=== PATIENT | female | born 1935 | race Caucasian/White ===

== ENCOUNTER 2018-04-10 07:29 | Outpatient (CLI) | payer MEDICARE, BC ==
--- NOTE | 2018-04-10 12:45 | NM ---
HEPATOBILIARY NUCLEAR MEDICINE SCAN: HISTORY: An 82-year-old female with right upper quadrant pain. TECHNIQUE/FINDINGS: The patient was injected with 5 millicuries of technetium 99m mebrofenin intravenously. There was pr ompt uptake of the tracer by the liver with excretion into the biliary tree and gallbladder. At the one hour time interval, the patient was given 8 oz of Ensure p.o. Gallbladder ejection fraction, aft er 1 hour, equals 79%. IMPRESSION: Normal nuclear medicine hepatobiliary scan and ejection fraction with a 79% gallbladder ejection frac tion at one hour. POS: OFF
== END 2018-04-10 07:30 | disposition home or self-care (01) ==
LOC: NM 07:29
PROVIDERS: ATTEND Internal Medicine Gastroenterology
DX: K50.90 Crohn's disease, unspecified, without complications (principal); R10.11 Right upper quadrant pain
CPT/HCPCS: 78227; A9537

== ENCOUNTER 2018-10-15 14:53 | Observation (INO) | payer MEDICARE, BC ==
[2018-10-15 15:38] LABS: #Basophils 0.1 thou/uL (0.0-0.2); #Eosinphils 0.2 thou/uL (0.0-0.7); #Lymphocytes 2.1 thou/uL (1.20-3.40); #Monocytes 0.9 thou/uL (0.11-0.59); #Neutrophils 9.7 thou/uL (1.40-6.50); %Basophils 0.5 % (0.0-1.0); %Eosinophils 1.7 % (0.0-10.0); %Lymphocytes 16.4 % (21.0-51.0); %Monocytes 7.1 % (0.0-10.0); %Neutrophils 74.3 % (42.0-75.0); Hemoglobin 14.1 g/dL (12.0-16.0); Mean Corpuscular HGB CONC 33.7 g/dL (32.0-36.0); Mean Corpuscular Hemoglobin 30.7 pg (27.0-31.0); Mean Corpuscular Volume 91.2 fL (78.0-98.0); Mean Platelet Volume 7.4 fL (7.4-10.4); Platelet Count 278 thou/uL (130-400); RBC Distribution Width 12.6 % (11.5-14.5); Red Blood Cell (RBC) Count 4.59 mill/uL (4.20-5.40)
[2018-10-15 16:12] LABS: ALT (SGPT) 13 U/L (8-55); AST (SGOT) 17 U/L (5-34); Albumin 3.4 g/dL (3.4-4.8); Alkaline Phosphatase 96 U/L (40-150); Anion Gap 17 mmol/L (10-20); BUN (Urea Nitrogen) 31 mg/dL (9.8-20.1); Bilirubin, Total 0.4 mg/dL (0.2-1.2); Calc. Creatinine Clearance 0 mL/min (70-130); Calcium 9.7 mg/dL (7.8-10.44); Carbon Dioxide 18 mmol/L (23-31); Chloride 105 mmol/L (98-107); Estimated GFR-MDRD 36; Globulin 3.5 g/dL (2.4-3.5); Glucose 222 mg/dL (83-110); Potassium 5.3 mmol/L (3.5-5.1); Protein, Total 6.9 g/dL (6.0-8.3); Sodium 135 mmol/L (136-145)
[2018-10-15 18:12] LABS: Bilirubin Negative (Negative); Blood, Urine Negative (Negative); Clarity CLEAR (Clear); Glucose, Urine (Dipstick) Negative (Negative); Leukocyte Negative (Negative); Nitrite Negative (Negative); Protein, Urine (Dipstick) Negative (Neg-Trace); Urobilinogen 0.2 mg/dL (0.2-1.0)
[2018-10-16] MEDS ORDERED: Acetaminophen 325 MG TAB PO PRN (00:05)
[2018-10-16] MEDS ORDERED: Acetaminophen 650 MG Suppository PR PRN (00:05)
[2018-10-16] MEDS ORDERED: Ondansetron PF 4 MG/2 ML Vial IVP PRN (00:05)
[2018-10-16] MEDS ORDERED: Ondansetron ODT 4 MG TAB PO PRN (00:05)
[2018-10-16] MEDS ORDERED: Melatonin 3 MG TAB PO PRN (00:09)
[2018-10-16] MEDS ORDERED: Sodium Chloride 0.9% 1,000 ML IV SCH (00:15)
[2018-10-16 01:40] VITALS: BMI 30.7
--- NOTE | 2018-10-16 04:29 | HP ---
REASON FOR ADMISSION: Weakness with recent diarrhea. HISTORY OF PRESENT ILLNESS AND REVIEW OF SYSTEMS: Ms. Small is a pleasant 83-year-old woman with a background history of Crohn's, type 2 diabetes, myasthenia gravis, and hypothyroidism who presents with complaints of progressive weakness for the last 3-5 days. She was also experiencing diarrhea, which actually resolved yesterday. She reports having improved stools without any complaints of melena or hematochezia. The patient reports undergoing recent antibiotic therapy for a persistent UTI and received 30 days of tetracycline. She states she has been dealing with a persistent UTI for the last 18 months requiring 8-9 courses of antibiotics. She completed this more recent course of antibiotics on Friday, October 12, 2018. Per her daughter, she has been eating less due to sleeping more during the day. Patient is awake most of the night. She has noted weakness in the lower extremities. Normally, she walks around her home unassisted and uses a walker for long distances. She denies having any numbness or paresthesias in her legs. She states she overall feels fatigued and it has continued to worsen for the last few days. She denies having any nausea or vomiting. Denies having any fevers, chills, or sweats. Denies having any headaches or dizziness. She does report feeling lightheaded upon standing; therefore, she usually takes her time with change in positions. Denies having any changes with her appetite, but has been skipping meals due to sleeping during the day. She denies having any changes with her weight. No chest pain, palpitations, or shortness of breath. No abdominal pain or cramping. No urinary symptoms such as dysuria or hematuria. All other review of systems are negative. PAST MEDICAL HISTORY: 1. Diabetes type 2. 2. Hypothyroidism. 3. Crohn's disease. 4. Previous history of left breast cancer status post mastectomy in 1972. 5. Myasthenia gravis. 6. Anxiety. 7. Depression. PAST SURGICAL HISTORY: 1. Tonsillectomy. 2. Back surgeries x2 with titanium in neck. 3. Umbilical hernia repair. 4. Hysterectomy. 5. Mastectomy of the left breast. SOCIAL HISTORY: The patient lives at home alone. She is fully independent. Denies any smoking or heavy alcohol use. Denies any illicit drug use. ALLERGIES: 1. ANTIHISTAMINES, ELEVATED BLOOD PRESSURE. 2. CODEINE SULFATE CAUSES NAUSEA. 3. CORTICOSTEROIDS CAUSES SEVERE JOINT SWELLING. 4. CRESTOR. 5. HYDROCODONE CAUSES NAUSEA. 6. LEVAQUIN CAUSES NAUSEA. 7. LISINOPRIL CAUSES LEG CRAMPS. 8. PENICILLIN G CAUSES RASH. CURRENT MEDICATIONS: 1. Metoprolol 25 mg p.o. daily. 2. Clopidogrel 75 mg p.o. daily. 3. Vitamin D3 3000 units p.o. daily. 4. Aspirin 81 mg p.o. daily. 5. Linagliptin 5 mg p.o. daily. 6. Sitagliptin 50 mg p.o. daily. 7. Spironolactone 25 mg p.o. daily. 8. Losartan 50 mg p.o. daily. 9. Amlodipine 10 mg p.o. daily. 10. Ferrous sulfate 65 mg p.o. daily. 11. Levothyroxine 88 mcg p.o. daily. PHYSICAL EXAMINATION: GENERAL: The patient appears well developed, well nourished, in no acute distress. VITAL SIGNS: Temperature 97.5, pulse 63, respirations 17, blood pressure 116/46, O2 saturation 97% on room air. HEENT: Normocephalic and atraumatic. Pupils are equal, round, reactive to light. Sclerae are without icterus. Oropharynx is clear. NECK: Supple without lymphadenopathy. LUNGS: Clear to auscultation bilaterally without wheezes, rales, or rhonchi. CARDIAC: Regular rate and rhythm without audible murmurs, rubs, or gallops. ABDOMEN: Soft, nontender, nondistended. Normoactive bowel sounds present. EXTREMITIES: No calf pain, tenderness, or edema. NEUROLOGIC: Alert and oriented x3. No focal deficits. SKIN: Without rash or jaundice. LABORATORY DATA: White blood count 13, hemoglobin 14.1, hematocrit 41.9, platelets 278. Sodium 135, potassium 5.3. BUN 31, creatinine 1.40. LFTs unremarkable. EGFR 36, stable. Urinalysis unremarkable. IMAGING DATA: None. IMPRESSION AND PLAN: Ms. Small is a pleasant 83-year-old woman presenting with generalized weakness and diarrhea that appears to have resolved yesterday. She is being admitted for management of the following. 1. Weakness. PT/OT eval requested. Patient normally walks independently at home, but has been more fatigued recently and with general deconditioning while undergoing recent antibiotics for urinary tract infection. No focal neurology on exam. 2. Diarrhea. Appears to have resolved yesterday. Recent 30-day course of antibiotics. Stool culture/Clostridium difficile are requested. 3. Hyperglycemia. Her glucose has raised up to 222. Resume home medications and monitor glucose. 4. Dehydration. Patient has been drinking and eating less with recent diarrhea. She has been given IV fluids in the ED. We will continue slow IV hydration. Monitor electrolytes. 5. Leukocytosis. Possibly associated with recent loose stools or persistent urinary tract infection versus other underlying infection. Chest x-ray requested. Urinalysis negative. Continue to monitor white blood count. 6. Hypertension. Monitor blood pressure and resume home medications. 7. Hyperkalemia. The patient has been receiving IV fluids. Check potassium with morning labs. 8. Venous thromboembolism prophylaxis. 9. Gastrointestinal prophylaxis. The patient's case will be discussed with for further recommendations. Job ID: [id number]
[2018-10-16] MEDS ORDERED: Levothyroxine Sodium 88 MCG TAB PO SCH (06:00)
[2018-10-16 06:07] LABS: Bilirubin Negative (Negative); Blood, Urine Negative (Negative); Clarity CLEAR (Clear); Glucose, Urine (Dipstick) Negative (Negative); Leukocyte Negative (Negative); Nitrite Negative (Negative); Protein, Urine (Dipstick) Negative (Neg-Trace); Specific Gravity, Urine 1.013 (1.002-1.036); Urobilinogen 0.2 mg/dL (0.2-1.0)
[2018-10-16 06:09] LABS: Bacteria/HPF None Seen HPF (None Seen); Hyaline Casts/LPF 0-3 HYALINE CAST LPF (0-3 Hyaline); Pathc Cast-AUWi Flag 0.29 (0-2.49); RBC/HPF 0-3 HPF (0-3); Squamous Epithelial None Seen HPF (0-3); WBC/HPF None Seen HPF (0-3)
[2018-10-16] MEDS ORDERED: Eucerin (Mineral Oil/Petrolatum,White) 30 gm Jar TOP PRN (08:12)
[2018-10-16] MEDS ORDERED: Loratadine 10 MG TAB PO PRN (08:12)
[2018-10-16] MEDS ORDERED: Sodium Chloride 0.65% Nasal 44 ML BOT EA NARE PRN (08:12)
[2018-10-16] MEDS ORDERED: Artificial Tears 18 DROP/0.9 ML EA EYE PRN (08:12)
[2018-10-16] MEDS ORDERED: Diabetic Tussin 200 MG/10 ML UDCUP PO PRN (08:12)
[2018-10-16] MEDS ORDERED: hydrALAZINE 20 MG/ML VIAL SLOW IVP PRN (08:12)
[2018-10-16] MEDS ORDERED: Cepastat Lozenges 1 LOZ PO PRN (08:12)
[2018-10-16] MEDS ORDERED: Ferrous Sulfate 325 MG TAB PO SCH (09:00)
[2018-10-16] MEDS ORDERED: Amlodipine 10 MG TAB PO SCH (09:00)
[2018-10-16] MEDS ORDERED: Losartan 25 MG TAB PO SCH (09:00)
[2018-10-16] MEDS ORDERED: Clopidogrel Bisulfate 75 MG TAB PO SCH (09:00)
[2018-10-16] MEDS ORDERED: Non-Formulary Item 1 EACH (Linagliptin [Tradjenta] 5 MG) PO SCH (09:00)
[2018-10-16] MEDS ORDERED: Alogliptin 25 MG TAB PO SCH (09:00)
[2018-10-16] MEDS ORDERED: Aspirin Chewable 81 MG TAB PO SCH (09:00)
[2018-10-16] MEDS ORDERED: Spironolactone 25 MG TAB PO SCH (09:00)
[2018-10-16 09:25] LABS: #Eosinphils 0.3 thou/uL (0.0-0.7); #Lymphocytes 2.9 thou/uL (1.20-3.40); #Monocytes 1.2 thou/uL (0.11-0.59); #Neutrophils 7.6 thou/uL (1.40-6.50); %Basophils 0.3 % (0.0-1.0); %Eosinophils 2.8 % (0.0-10.0); %Lymphocytes 23.8 % (21.0-51.0); %Monocytes 9.7 % (0.0-10.0); %Neutrophils 63.4 % (42.0-75.0); Hemoglobin 14.1 g/dL (12.0-16.0); Mean Corpuscular HGB CONC 33.2 g/dL (32.0-36.0); Mean Corpuscular Hemoglobin 30.3 pg (27.0-31.0); Mean Corpuscular Volume 91.3 fL (78.0-98.0); Mean Platelet Volume 7.2 fL (7.4-10.4); Platelet Count 198 thou/uL (130-400); RBC Distribution Width 12.7 % (11.5-14.5); Red Blood Cell (RBC) Count 4.65 mill/uL (4.20-5.40)
[2018-10-16 09:49] LABS: ALT (SGPT) 12 U/L (8-55); AST (SGOT) 12 U/L (5-34); Albumin 3.4 g/dL (3.4-4.8); Alkaline Phosphatase 91 U/L (40-150); Anion Gap 15 mmol/L (10-20); BUN (Urea Nitrogen) 24 mg/dL (9.8-20.1); Bilirubin, Total 0.5 mg/dL (0.2-1.2); Calc. Creatinine Clearance 48 mL/min (70-130); Calcium 9.3 mg/dL (7.8-10.44); Carbon Dioxide 20 mmol/L (23-31); Chloride 109 mmol/L (98-107); Estimated GFR-MDRD 41; Globulin 3.3 g/dL (2.4-3.5); Glucose 153 mg/dL (83-110); Potassium 4.6 mmol/L (3.5-5.1); Protein, Total 6.7 g/dL (6.0-8.3); Sodium 139 mmol/L (136-145)
--- NOTE | 2018-10-16 10:25 | RAD ---
PA AND LATERAL CHEST RADIOGRAPH: Date: 10-16-18 History: Leukocytosis, decreased breath sounds at lung bases. Comparison: 03-29-17 FINDINGS: Post-surgical changes related to CABG are again noted. Post-surgical changes lower cervical spine are again seen related to anterior cervical fusion. Cardiac silhouette is within normal limits. Minimal atelectasis is present at the left lung base. There is symmetric biapical pleural and parenchymal sca rring. Calcified granuloma is again seen at the medial right lung base. Lungs are otherwise clear. De generative changes are again noted in the spine. Vascular calcifications are seen in the thoracic aor ta. There has been no significant interval change from the prior exam. IMPRESSION: 1. No acute cardiopulmonary process. 2. Probable mild atelectasis left lung base. POS: [facility]
[2018-10-16 11:24] VITALS: BP 116/56; TEMP 97.7
--- NOTE | 2018-10-16 11:54 | DIS ---
DATE OF ADMISSION: 10/15/2018 DATE OF DISCHARGE: 10/16/2018 PRIMARY CARE PHYSICIAN: Dr. Kiran Coreas. DISCHARGE DISPOSITION: Home. PRIMARY DISCHARGE DIAGNOSES: Dehydration, corrected; gastroenteritis, resolved; generalized weakness, improved. SECONDARY DISCHARGE DIAGNOSES: Obesity with body mass index 30, hypertension, diabetes type 2, and Crohn's disease. PRIMARY PROCEDURE/OPERATION: None. RADIOLOGICAL INVESTIGATION: Chest x-ray normal. SIGNIFICANT LABORATORY DATA: WBC 12.0, hemoglobin 14.1, and platelet 198. Sodium 139, potassium 4.6, BUN 24, creatinine 1.25, and calcium 9.3. LFT normal. Urinalysis normal. DISCHARGE MEDICATIONS: 1. Amlodipine 10 mg daily. 2. Aspirin 81 mg daily. 3. Vitamin D3 3000 units p.o. daily. 4. Plavix 75 mg p.o. daily. 5. Ferrous sulfate 65 mg daily. 6. Synthroid 88 mcg p.o. daily. 7. Tradjenta 5 mg daily. 8. Losartan 50 mg p.o. daily. 9. Toprol-XL 25 mg p.o. daily. 10. Januvia 50 mg daily. 11. Aldactone 25 mg p.o. daily. CONTRAINDICATION: None. CODE STATUS: Full code. INPATIENT BRICKLAYER APPRENTICE: None. ALLERGIES: LEVOFLOXACIN AND CODEINE. DISCHARGE PLAN: Post-hospital, the patient will follow up with primary care physician in 1 week. HOSPITAL COURSE: An 83-year-old female who has Crohn's disease, who was admitted by RON Huertas. Please see her H and P for further details. The patient was admitted for diarrhea. She had diarrhea, which is on and off per her. Because of Crohn's disease, she gets intermittent diarrhea at home, but this time she was having more diarrhea and she got more weak and that is why she came to emergency room for evaluation. In the emergency room, the patient was slightly dehydrated. She was given IV fluid. Further observation in the hospital, she was doing much better. Her vitals remained stable. She did not have any further diarrhea, so we were not able to rule out any kind of infectious etiology. The patient is feeling energetic and today she wants to go home. I have seen and examined the patient at bedside today. Plan of care discussed with the patient and family member. All review of systems reviewed with her and negative. Her examination is completely normal. Job ID: [id number]
== END 2018-10-16 16:53 | disposition home or self-care (01) ==
LOC: ERS 14:53 → ERHOLD 17:10 → T4-A 10-16 01:26
PROVIDERS: ADMIT Emergency Medicine; ATTEND Emergency Medicine
DX: E86.0 Dehydration (principal); K52.9 Noninfective gastroenteritis and colitis, unspecified; R53.1 Weakness; I10 Essential (primary) hypertension; K50.90 Crohn's disease, unspecified, without complications; E03.9 Hypothyroidism, unspecified; F41.9 Anxiety disorder, unspecified; F32.9 Major depressive disorder, single episode, unspecified; G70.00 Myasthenia gravis without (acute) exacerbation; E11.65 Type 2 diabetes mellitus with hyperglycemia; E87.5 Hyperkalemia; E66.9 Obesity, unspecified; Z68.30 Body mass index [BMI] 30.0-30.9, adult; Z85.3 Personal history of malignant neoplasm of breast; Z79.02 Long term (current) use of antithrombotics/antiplatelets; Z79.84 Long term (current) use of oral hypoglycemic drugs; Z79.899 Other long term (current) drug therapy; Z88.0 Allergy status to penicillin; Z88.1 Allergy status to other antibiotic agents; Z88.5 Allergy status to narcotic agent; Z88.8 Allergy status to other drugs, medicaments and biological substances; Z98.890 Other specified postprocedural states
CPT/HCPCS: 71046; 80053 ×2; 81001; 81003; 82962; 85025 ×2; 87045; 87046; 87324; 87449 ×2; 87899 ×2; 93005; 96360; 97116; 97139 ×4; 99285; G0378 ×2; 36415; 36416

== ENCOUNTER 2018-11-06 09:55 | Observation (INO) | payer MEDICARE, BC ==
[2018-11-06 10:58] LABS: #Eosinphils 0.1 thou/uL (0.0-0.7); #Lymphocytes 2.3 thou/uL (1.20-3.40); #Monocytes 1.2 thou/uL (0.11-0.59); %Basophils 0.1 % (0.0-1.0); %Eosinophils 0.6 % (0.0-10.0); %Lymphocytes 15.6 % (21.0-51.0); %Neutrophils 75.7 % (42.0-75.0); Hemoglobin 15.4 g/dL (12.0-16.0); Mean Corpuscular HGB CONC 33.1 g/dL (32.0-36.0); Mean Corpuscular Hemoglobin 30.1 pg (27.0-31.0); Mean Corpuscular Volume 90.9 fL (78.0-98.0); Mean Platelet Volume 6.9 fL (7.4-10.4); Platelet Count 403 thou/uL (130-400); RBC Distribution Width 12.7 % (11.5-14.5); Red Blood Cell (RBC) Count 5.11 mill/uL (4.20-5.40); White Blood Cell (WBC) Count 14.5 thou/uL (4.8-10.8)
[2018-11-06 11:29] LABS: ALT (SGPT) 11 U/L (8-55); AST (SGOT) 19 U/L (5-34); Albumin 4.5 g/dL (3.4-4.8); Alkaline Phosphatase 84 U/L (40-150); Anion Gap 22 mmol/L (10-20); BUN (Urea Nitrogen) 41 mg/dL (9.8-20.1); Bilirubin, Total 0.6 mg/dL (0.2-1.2); Calc. Creatinine Clearance 0 mL/min (70-130); Calcium 10.5 mg/dL (7.8-10.44); Carbon Dioxide 17 mmol/L (23-31); Chloride 100 mmol/L (98-107); Estimated GFR-MDRD 26; Globulin 4.3 g/dL (2.4-3.5); Glucose 141 mg/dL (83-110); Potassium 5.2 mmol/L (3.5-5.1); Protein, Total 8.8 g/dL (6.0-8.3); Sodium 134 mmol/L (136-145)
[2018-11-06 12:17] LABS: Bilirubin Negative (Negative); Blood, Urine Negative (Negative); Clarity Clear (Clear); Glucose, Urine (Dipstick) Negative (Negative); Leukocyte Negative (Negative); Nitrite Negative (Negative); Protein, Urine (Dipstick) Negative (Neg-Trace); Specific Gravity, Urine 1.025 (1.005-1.030); Urobilinogen 0.2 mg/dL (0.2-1.0); pH, Urine 5.5 (5.0-9.0)
--- NOTE | 2018-11-06 12:22 | CT ---
CT HEAD NONCONTRAST: History: Altered mental status. Anxiety and weakness. Comparison: 11-25-16 FINDINGS: There is no evidence of acute intracranial hemorrhage or infarct. Diffuse cortical atrophy and chroni c ischemic small vessel disease are again demonstrated. Encephalomalacia within the left frontal whit e matter is stable. There is no mass effect or shift of midline structures. Visualized paranasal sinu ses remain well aerated. IMPRESSION: Chronic type findings are stable. No acute intracranial abnormalities are demonstrated. POS: H
--- NOTE | 2018-11-06 12:30 | RAD ---
CHEST 1 VIEW: HISTORY: Weakness. COMPARISON: Radiograph 03/29/2017. FINDINGS: Heart size upper limits of normal. No pneumothorax. No effusion. No focal areas of consolidation. Calcified granuloma in the right lower lobe. Incomplete evaluation of ACDF hardware. IMPRESSION: No acute intrathoracic abnormality. POS: [facility]
[2018-11-06 13:31] LABS: CO2 Tension (PvCO2) 34.7 mmHg (40.0-50.0); Calcium, Ionized 1.07 mmol/L (See Comments:); Chloride 105 mmol/L (98-107); Hemoglobin - Calc 15.3 g/dL (12.0-16.0); O2 Tension (PvO2) 32.8 mmHg (35.0-45.0); Potassium 4.8 mmol/L (3.5-5.1); Sodium 137 mmol/L (138-145); vO2 Saturation-calc 64.5 % (60.0-85.0)
[2018-11-06] MEDS ORDERED: Lorazepam 2 MG/ML VIAL ONE (13:35)
[2018-11-06] MEDS ORDERED: Aspirin Chewable 81 MG TAB ONE (15:00)
--- NOTE | 2018-11-06 15:18 | PDOC.FPRHP ---
- History of Present Illness Chief Complaint: SOB, weakness History of Present Illness: 83 yo F recently discharged for diarrhea and dehydration 2 weeks ago with PMH quadruple CABG, HTN, DM2, crohns, anxiety, and breast cancer presents for generalized weakness and exertional dyspnea. Patient states she has been having worsened weakness and shakiness for the past four days, and SOB with exertion periodically. Daughter states that the patient was walking to the car today and became extremely SOB, daughter was worried she was going to pass out. Daughter brought her to the hospital instead of to her clinic appointment. Daughter states that she has very poorly controlled anxiety with multiple panic attacks every day. Patient reports poor PO intake but no weight loss. No fevers or chills, no night sweats where she soaks the sheets, no chest pain, no orthopnea or edema. She does report diarrhea and urge incontinence. In the ED, Head CT neg, EKG stable from prior with non-specific t wave changes, CXR normal. UA negative. WBC elevated, vitals stable. LA elevated, ketones elevated. Pt was given ativan and 1L NS and aspirin 325. - Allergies/Adverse Reactions Allergies Allergy/AdvReac Type Severity Reaction Status Date / Time levofloxacin [From Levaquin] Allergy Severe Emesis Verified 10/16/18 01:36 codeine Allergy Intermediate Emesis Verified 10/16/18 01:36 Antihistamines - Ethanolamine Allergy Mild Verified 10/16/18 01:36 Corticosteroids Allergy Mild Verified 10/16/18 01:36 (Glucocorticoids) gemfibrozil [From Lopid] Allergy Mild Verified 10/16/18 01:36 lisinopril Allergy Mild Verified 10/16/18 01:36 Penicillins Allergy Mild Rash Verified 10/16/18 01:36 Phenothiazines Allergy Mild Verified 10/16/18 01:36 rosuvastatin calcium Allergy Mild Verified 10/16/18 01:36 [From Crestor] simvastatin [From Zocor] Allergy Mild Verified 10/16/18 01:36 NSAIDS (Non-Steroidal Allergy Unknown Verified 10/16/18 01:36 Anti-Inflamma - Home Medications Medication Instructions Recorded Confirmed Type Amlodipine Besylate [amLODIPine 10 mg PO DAILY 11/25/16 10/16/18 History Besylate] Aspirin [Leonides Chewable Aspirin] 81 mg PO DAILY 11/25/16 10/16/18 History sitaGLIPtin Phosphate [Januvia] 50 mg PO DAILY 11/25/16 10/16/18 History Cholecalciferol (Vitamin D3) 3,000 unit PO DAILY 10/16/18 10/16/18 History [Vitamin D3] Clopidogrel Bisulfate [Clopidogrel] 75 mg PO DAILY 10/16/18 10/16/18 History Ferrous Sulfate, Dried [Iron] 65 mg PO DAILY 10/16/18 10/16/18 History Levothyroxine Sodium [Synthroid] 88 mcg PO DAILY 10/16/18 10/16/18 History Linagliptin [Tradjenta] 5 mg PO DAILY 10/16/18 10/16/18 History Losartan [Cozaar] 50 mg PO DAILY 10/16/18 10/16/18 History Metoprolol Succinate [Toprol XL] 25 mg PO DAILY 10/16/18 10/16/18 History Spironolactone [Aldactone] 25 mg PO DAILY 10/16/18 10/16/18 History - History PMHx: anxiety, Hypothyroid, HTN, CAD, DM2, Crohns, spinal stenosis, hx CABG ( quadruple), hx breast cancer PSHx: Hx quadruple bypass, tonsillectomy, umbilical hernia, hysterectomy (4 surgeries), rib surgery, cervical and lumbar surgery, L mastectomy FHx: non contributory Social: 3 pack year smoking history, >30 years ago. No alcohol or drug use. - Review of Systems General: reports: weight/appetite/sleep changes (decreased appetite). denies: fever/chills Eyes: denies: eye pain, vision changes ENT: reports: nasal congestion (sinus congestion). denies: rhinorrhea Respiratory: reports: shortness of breath, exercise intolerance. denies: cough Cardiovascular: denies: chest pain, edema, paroxysmal nocturnal dyspnea Gastrointestinal: reports: diarrhea, constipation. denies: nausea, vomiting, abdominal pain, GI bleeding Genitourinary: reports: incontinence (urge). denies: dysuria Skin: denies: rashes, lesions Musculoskeletal: reports: pain (back/neck), tenderness, stiffness (back/neck) Neurological: reports: weakness. denies: numbness Psychological: reports: anxiety, depression - Vital signs BP: [119/52] HR: [65] RR: [18] Tmax: [97.7] Pox: [97]% on [RA] Wt: [88 kg] - Physical Exam Constitutional: NAD, awake, alert and oriented HEENT: normocephalic and atraumatic, PERRLA, conjunctiva clear, grossly normal hearing, MMM Neck: supple, no LAD Heart: RRR, normal S1/S2, pulses present, no edema, other (3/6 systolic murmur) Lungs: CTAB, no respiratory distress, good air movement, no rales/rhonchi, no wheezing Abdomen: soft, non-tender, bowel sounds present, no masses/distention Musculoskeletal: normal structure, normal tone Neurological: no focal deficit, CN II-XII intact, other (reports decreased sensation bilateral feet) Skin: no rash/lesions, good turgor, capillary refill <2 seconds Heme/Lymphatic: no unusual bruising or bleeding, no purpura, no petechia Psychiatric: normal mood and affect, good judgment and insight, intact recent and remote memory, other (slow to answer) FMR H&P: Results - Labs Result Diagrams: 11/06/18 10:30 11/06/18 10:30 Lab results: WBC 14.5 thou/uL (4.8-10.8) H 11/06/18 10:30 Hgb 15.4 g/dL (12.0-16.0) 11/06/18 10:30 Hct 46.5 % (36.0-47.0) 11/06/18 10:30 MCV 90.9 fL (78.0-98.0) 11/06/18 10:30 Plt Count 403 thou/uL (130-400) H 11/06/18 10:30 Neutrophils % 75.7 % (42.0-75.0) H 11/06/18 10:30 VBG pCO2 34.7 mmHg (40.0-50.0) L 11/06/18 13:21 VBG pO2 32.8 mmHg (35.0-45.0) L 11/06/18 13:21 Sodium 134 mmol/L (136-145) L 11/06/18 10:30 Potassium 5.2 mmol/L (3.5-5.1) H 11/06/18 10:30 Chloride 100 mmol/L (98-107) 11/06/18 10:30 Carbon Dioxide 17 mmol/L (23-31) L 11/06/18 10:30 BUN 41 mg/dL (9.8-20.1) H 11/06/18 10:30 Creatinine 1.86 mg/dL (0.6-1.1) H 11/06/18 10:30 Glucose 141 mg/dL (83-110) H 11/06/18 10:30 Lactic Acid 2.7 mmol/L (0.5-2.2) H 11/06/18 10:30 Calcium 10.5 mg/dL (7.8-10.44) H 11/06/18 10:30 Total Bilirubin 0.6 mg/dL (0.2-1.2) 11/06/18 10:30 AST 19 U/L (5-34) 11/06/18 10:30 ALT 11 U/L (8-55) 11/06/18 10:30 Alkaline Phosphatase 84 U/L (40-150) 11/06/18 10:30 Serum Total Protein 8.8 g/dL (6.0-8.3) H 11/06/18 10:30 Albumin 4.5 g/dL (3.4-4.8) 11/06/18 10:30 Lipase 58 U/L (8-78) 11/06/18 10:30 Urine Ketones Negative mg/dL (Negative) 11/06/18 11:43 Urine Blood Negative (Negative) 11/06/18 11:43 Urine Nitrite Negative (Negative) 11/06/18 11:43 Ur Leukocyte Esterase Negative (Negative) 11/06/18 11:43 - EKG Interpretation EKG: stable non-specific T wave changes - Radiology Interpretation Chest x-ray Status: image reviewed by me, report reviewed by me Additional comment: normal CT scan - head Status: image reviewed by me, report reviewed by me Additional comment: normal FMR H&P: A/P - Problem List (1) Exertional dyspnea Current Visit: Yes Status: Acute Code(s): R06.09 - OTHER FORMS OF DYSPNEA (2) Dehydration Current Visit: No Status: Acute Code(s): E86.0 - DEHYDRATION (3) Gastroenteritis Current Visit: No Status: Acute Code(s): K52.9 - NONINFECTIVE GASTROENTERITIS AND COLITIS, UNSPECIFIED (4) Weakness generalized Current Visit: No Status: Acute Code(s): R53.1 - WEAKNESS (5) Diabetes type 2, controlled Current Visit: No Status: Chronic Code(s): E11.9 - TYPE 2 DIABETES MELLITUS WITHOUT COMPLICATIONS (6) Hypertension Current Visit: No Status: Chronic Code(s): I10 - ESSENTIAL (PRIMARY) HYPERTENSION (7) Obesity (BMI 30-39.9) Current Visit: No Status: Chronic Code(s): E66.9 - OBESITY, UNSPECIFIED (8) Leukocytosis Current Visit: Yes Status: Acute Code(s): D72.829 - ELEVATED WHITE BLOOD CELL COUNT, UNSPECIFIED (9) Hx of CABG Current Visit: Yes Status: Chronic (10) HX: breast cancer Current Visit: Yes Status: Chronic Code(s): Z85.3 - PERSONAL HISTORY OF MALIGNANT NEOPLASM OF BREAST (11) HERIBERTO (acute kidney injury) Current Visit: Yes Status: Acute Code(s): N17.9 - ACUTE KIDNEY FAILURE, UNSPECIFIED (12) Hyperkalemia Current Visit: Yes Status: Acute Code(s): E87.5 - HYPERKALEMIA (13) Hypercalcemia Current Visit: Yes Status: Acute Code(s): E83.52 - HYPERCALCEMIA - Plan Exertional Dyspnea -aortic stenosis vs anxiety -3/6 systolic murmur -Severe anxiety, history of taking sertraline in clinic that caused her chest pressure -Panic attacks daily, 1-2 times daily -Clonazepam PRN for anxiety overnight. Patient will need to be started on exterminator helper termite therapy, she is willing to see a psychiatrist outpatient. No SI/HI currently. -Echo in the AM to evaluate for aortic stenosis, no echo seen in history recently here Leukocytosis -WBC of 14.5 -History of frequent UTIs, UA neg here, sent for culture -Most likely hemoconcentration Dehydration -Pt reports decreased PO intake -Bun/Cr ratio elevated, supportive of pre-renal azotemia -her labs appear hemo-concentrated -s/p 1 L NS in ED, start LR @ 110 ml/hr -Monitor for s/s fluid overload HERIBERTO -1.86 -fluids as above -pre-renal azotemia Hyperkalemia -most likely hemoconcentration, fluids as above. Recheck with AM labs. EKG stable. Hypercalcemia -most likely hemoconcentration, fluids as above. Recheck with AM labs. Hypothyroid, uncontrolled -TSH slightly elevated at 4.97 -Consider increasing dose of levothyroxine HTN -resume home meds CAD -resume home meds DM2 -resume home meds -SSI Crohns Hx spinal stenosis hx CABG (quadruple) hx breast cancer Obesity Diet: CC, HH Dispo: admit to tele obs DVT ppx: heparin Code status: full code PCP: Olivier Villatoro Pts Search Planner: Dr. Menard Pts GI: Dr Palma Pts Communication Arts Lecturer: Dr. Tony FMR H&P: Upper Level - Pertinent history 83 yo f presents with generalized weakness and worsening exertional dyspnea, decreased po intake, and worsening panic attacks, admitted for mild dehydration , HERIBERTO, and exertional dyspnea of unknown etiology at this point. #Exertional Dyspnea, worsening, subacute -ddx: panic attacks vs severe vs atypical chest pain -3/6 aortic stenosis murmur heard on exam; pt sees cardiology at the Med. Will request records. Will order an echo in the mean time. Will add on a BNP; unsure if pt has a prior hx of CHF -EKG NSR and stable from prior, some t wave inversions but not in contiguous leads and present on prior EKG; pt has a hx of a CABG, so we will continue to trend troponins, negative x2 so far and unchanged EKG -for pt's panic attacks, we will provide clonazepam prn; she has had side effects on trying sertraline outpatient and lexapro prior to that. However, she would benefit from a long-term SSRI or SNRI #Mild dehydration- -BUN/Cr sugests prerenal etiology -light fluids overnight (maint. @ 100ml/hr of LR) -recheck BMP in am - Plan Date/Time: 11/06/18 1518 I, [], have evaluated this patient and agree with findings/plan as outlined by spring intern resident. Pertinent changes/additions are listed here. Addendum - Attending - Attending Attestation Date/Time: 11/06/18 [id number] I personally evaluated the patient and discussed the management with Dr. Panchal/ Sheela. I agree with the History, Examination, Assessment and Plan documented above with any addition or exceptions noted below.
[2018-11-06 15:55] LABS: Acetaminophen Less than 6.0 mcg/mL (10.0-30.0); Alcohol Less than 10 mg/dL (Less than 10); Salicylate Less than 8.0 mg/dL (15.0-30.0)
[2018-11-06] MEDS ORDERED: Ondansetron ODT 4 MG TAB PO PRN (16:39)
[2018-11-06] MEDS ORDERED: Acetaminophen 325 MG TAB PO PRN (16:39)
[2018-11-06] MEDS ORDERED: Ondansetron PF 4 MG/2 ML Vial IVP PRN (16:39)
[2018-11-06] MEDS ORDERED: Acetaminophen 650 MG Suppository PR PRN (16:39)
[2018-11-06] MEDS ORDERED: Dextrose 5% in Water 1,000 ML IV PRN (16:39)
[2018-11-06] MEDS ORDERED: Dextrose 50% Abboject 50 ML SYRINGE SLOW IVP PRN (16:39)
[2018-11-06] MEDS ORDERED: HumaLOG 300 UNITS/3 ML VIAL SC PRN (16:43)
[2018-11-06 18:30] VITALS: BMI 30.9
[2018-11-06] MEDS: Lactated Ringer's 1,000 ML IV SCH (18:30)
[2018-11-06 18:41] LABS: Lactic Acid 1.5 mmol/L (0.5-2.2)
[2018-11-06] MEDS: Heparin 5,000 UNITS/ML VIAL SC SCH (19:49)
[2018-11-06] MEDS: clonazePAM 0.5 MG TAB PO PRN (23:29)
[2018-11-07] MEDS: Lactated Ringer's 1,000 ML IV SCH ×2 (03:23→14:01)
--- NOTE | 2018-11-07 05:36 | PDOC.FM ---
Addendum entered and electronically signed by Shira Panchal MD 11/07/18 07:30: Continue home metoprolol. Original Note: - Subjective Subjective: Patient feeling much better this AM after fluids. States that she has had this problem before of feeling nauseated, and has not wanted to drink enough fluids. States for the past few days she had decreased her water intake significantly, but had still been drinking chocolate milk. - Objective Vital Signs & Weight: Vital Signs (12 hours) Temp Pulse Resp BP Pulse Ox 11/06/18 19:25 97.7 F 60 18 133/71 95 11/06/18 17:52 97.4 F L 70 18 140/67 93 L Weight Weight 89.499 kg I&O: 11/05/18 11/06/18 11/07/18 06:59 06:59 06:59 Intake Total 993 Balance 993 Result Diagrams: 11/07/18 08:02 11/07/18 08:02 Phys Exam - Physical Examination Constitutional: NAD HEENT: PERRLA, moist MMs Respiratory: no wheezing, no rales, no rhonchi, clear to auscultation bilateral Cardiovascular: RRR 2/6 systolic murmur Gastrointestinal: soft, non-tender, no distention, positive bowel sounds Musculoskeletal: no edema, pulses present Neurological: non-focal, moves all 4 limbs Psychiatric: normal affect, A&O x 3 Skin: no rash, normal turgor, cap refill <2 seconds Dx/Plan (1) Exertional dyspnea Code(s): R06.09 - OTHER FORMS OF DYSPNEA Status: Acute (2) Dehydration Code(s): E86.0 - DEHYDRATION Status: Acute (3) Gastroenteritis Code(s): K52.9 - NONINFECTIVE GASTROENTERITIS AND COLITIS, UNSPECIFIED Status : Acute (4) Weakness generalized Code(s): R53.1 - WEAKNESS Status: Acute (5) Diabetes type 2, controlled Code(s): E11.9 - TYPE 2 DIABETES MELLITUS WITHOUT COMPLICATIONS Status: Chronic (6) Hypertension Code(s): I10 - ESSENTIAL (PRIMARY) HYPERTENSION Status: Chronic (7) Obesity (BMI 30-39.9) Code(s): E66.9 - OBESITY, UNSPECIFIED Status: Chronic (8) Leukocytosis Code(s): D72.829 - ELEVATED WHITE BLOOD CELL COUNT, UNSPECIFIED Status: Acute (9) Hx of CABG Status: Chronic (10) HX: breast cancer Code(s): Z85.3 - PERSONAL HISTORY OF MALIGNANT NEOPLASM OF BREAST Status: Chronic (11) HERIBERTO (acute kidney injury) Code(s): N17.9 - ACUTE KIDNEY FAILURE, UNSPECIFIED Status: Acute (12) Hyperkalemia Code(s): E87.5 - HYPERKALEMIA Status: Acute (13) Hypercalcemia Code(s): E83.52 - HYPERCALCEMIA Status: Acute - Plan Plan: Exertional Dyspnea -Aortic stenosis vs anxiety -3/6 systolic murmur -Echo today to evaluate for aortic stenosis or CHF -BNP elevated at 200 -Severe anxiety, panic attacks daily, 1-2 times daily -Wanted to give hydroxyzine, however patient has allergy. Discussed risks and benefits. Took clonazepam twice overnight for anxiety for short term therapy which helped. 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 She is willing to see a psychiatrist outpatient. Will refer from clinic for psychiatry visit. Dehydration -Pt reports decreased PO intake -Bun/Cr ratio elevated, supportive of pre-renal azotemia -her labs appear hemo-concentrated -s/p 1 L NS in ED, start LR @ 110 ml/hr -Monitor for s/s fluid overload -AM labs pending Leukocytosis -WBC of 14.5, AM labs pendjng -History of frequent UTIs, UA neg here, sent for culture -Most likely hemoconcentration HERIBERTO -1.86, expect improvement this AM s/p fluid resuscitation, AM labs pending -fluids as above -pre-renal azotemia Hyperkalemia -most likely hemoconcentration, fluids as above. EKG stable. -AM labs pending Hypercalcemia -most likely hemoconcentration, fluids as above. -AM labs pending Hypothyroid, uncontrolled -TSH slightly elevated at 4.97 -Consider increasing dose of levothyroxine HTN -continue home meds, hold metoprolol CAD -continue home meds DM2 -continue home meds -SSI Crohns Hx spinal stenosis hx CABG (quadruple) hx breast cancer Obesity Diet: CC, HH Dispo: admit to tele obs DVT ppx: heparin Code status: full code PCP: Olivier Villatoro Pts Saas Architect: Dr. Menard Pts GI: Dr Palma Pts Bulbs Farmworker: Dr. Tony Addendum - Attending - Attending Attestation Date/Time: 11/07/18 9022 I personally evaluated the patient and discussed the management with Dr. Panhcal. I agree with the History, Examination, Assessment and Plan documented above with any addition or exceptions noted below. Patient improved with fluid hydration and reports feeling well to go home. We are awaiting echo to be obtained and then will discharge home with further follow up and treatment of her anxiety and medical conditions outpatient.
[2018-11-07] MEDS ORDERED: Levothyroxine Sodium 88 MCG TAB PO SCH (06:00)
[2018-11-07] MEDS: Heparin 5,000 UNITS/ML VIAL SC SCH ×2 (08:26→15:08)
[2018-11-07 08:37] LABS: #Eosinphils 0.2 thou/uL (0.0-0.7); #Lymphocytes 2.2 thou/uL (1.20-3.40); #Neutrophils 7.4 thou/uL (1.40-6.50); %Basophils 0.3 % (0.0-1.0); %Eosinophils 1.5 % (0.0-10.0); %Lymphocytes 20.2 % (21.0-51.0); %Monocytes 9.6 % (0.0-10.0); %Neutrophils 68.4 % (42.0-75.0); Hemoglobin 13.1 g/dL (12.0-16.0); Mean Corpuscular Hemoglobin 30.9 pg (27.0-31.0); Mean Corpuscular Volume 93.6 fL (78.0-98.0); Mean Platelet Volume 6.9 fL (7.4-10.4); Platelet Count 293 thou/uL (130-400); RBC Distribution Width 12.6 % (11.5-14.5); Red Blood Cell (RBC) Count 4.24 mill/uL (4.20-5.40); White Blood Cell (WBC) Count 10.8 thou/uL (4.8-10.8)
[2018-11-07 08:46] LABS: Anion Gap 13 mmol/L (10-20); BUN (Urea Nitrogen) 32 mg/dL (9.8-20.1); Calc. Creatinine Clearance 43 mL/min (70-130); Calcium 9.2 mg/dL (7.8-10.44); Carbon Dioxide 21 mmol/L (23-31); Chloride 108 mmol/L (98-107); Estimated GFR-MDRD 36; Glucose 146 mg/dL (83-110); Potassium 4.3 mmol/L (3.5-5.1); Sodium 138 mmol/L (136-145)
[2018-11-07] MEDS ORDERED: Non-Formulary Item 1 EACH (Linagliptin [Tradjenta] 5 MG) PO SCH (09:00)
[2018-11-07] MEDS ORDERED: Ferrous Sulfate 325 MG TAB PO SCH (09:00)
[2018-11-07] MEDS ORDERED: Clopidogrel Bisulfate 75 MG TAB PO SCH (09:00)
[2018-11-07] MEDS ORDERED: Alogliptin 6.25 MG TAB PO SCH (09:00)
[2018-11-07] MEDS ORDERED: Amlodipine 10 MG TAB PO SCH (09:00)
[2018-11-07] MEDS ORDERED: Spironolactone 25 MG TAB PO SCH (09:00)
[2018-11-07] MEDS ORDERED: Losartan 25 MG TAB PO SCH (09:00)
[2018-11-07] MEDS ORDERED: Aspirin Chewable 81 MG TAB PO SCH (09:00)
[2018-11-07 11:57] VITALS: BP 128/51; TEMP 97.8
[2018-11-07] MEDS: clonazePAM 0.5 MG TAB PO PRN (14:00)
--- NOTE | 2018-11-08 12:28 | DIS ---
DATE OF ADMISSION: 11/06/2018 DATE OF DISCHARGE: 11/07/2018 RESIDENT: Shira Panchal MD. ADMITTING ATTENDING: Eitan Ordaz MD. CONSULTS: None. PROCEDURES: 1. Chest x-ray, 11/06/2018. No acute intrathoracic abnormality. 2. Brain CT, 11/06/2018. Chronic head findings are stable. No acute intracranial abnormality demonstrated. Diffuse cortical atrophy and chronic ischemic small vessel disease are again demonstrated. Encephalomalacia within the left frontal white matter is stable. 3. Echocardiogram, 11/07/2018. Ejection fraction is visually estimated at 65% to 70%. Grade 1/3 diastolic dysfunction. Moderate concentric left ventricular hypertrophy. Sigmoid-shaped septum without hemodynamically significant LVOT obstruction. Mildly dilated left atrium. Mitral annular calcification is present. Mild mitral regurgitation. Aortic valve sclerosis, but opens well. Moderate tricuspid regurgitation. Elevated right ventricular systolic pressure estimated at 50 mmHg. PRIMARY DIAGNOSIS: Exertional dyspnea, likely 2/2 anxiety vs pulmonary hypertension. SECONDARY DIAGNOSES: 1. Dehydration. 2. Leukocytosis. 3. Acute kidney injury. 4. Hyperkalemia. 5. Hypercalcemia. 6. Hypothyroidism, uncontrolled. 7. Hypertension. 8. Coronary artery disease. 9. Diabetes mellitus type 2. 10. Crohn disease. 11. History of spinal stenosis. 12. History of coronary artery bypass grafting, quadruple bypass. 13. History of breast cancer. 14. Obesity. DISCHARGE MEDICATIONS: 1. Levothyroxine 100 mcg p.o. daily. 2. Ondansetron 4 mg p.o. q.4 hours as needed for nausea or vomiting. 3. Januvia 25 mg p.o. daily. 4. Spironolactone 25 mg p.o. daily. 5. Ferrous sulfate 325 mg p.o. daily. 6. Amlodipine 10 mg p.o. daily. 7. Clopidogrel 75 mg p.o. daily. 8. Vitamin D3 2000 units p.o. daily. 9. Metoprolol 25 mg p.o. daily. 10. Aspirin 81 mg p.o. daily. DISCONTINUED MEDICATION: Levothyroxine 88 mcg p.o. daily. HISTORY OF PRESENT ILLNESS/HOSPITAL COURSE: This 83-year-old female recently discharged with diarrhea and dehydration 2 weeks prior with past medical history of quadruple coronary artery bypass graft, hypertension, diabetes mellitus type 2, Crohn's, anxiety, and breast cancer, who presented for generalized weakness and exertional dyspnea. The patient states that she has been having worsening weakness and shakiness for the past 4 days and with shortness of breath with exertion periodically. Daughter states that the patient was brought into a car today and became extremely short of breath, daughter was worried she was going to pass out. Daughter brought her to the hospital instead of to her clinic appointment. Daughter stated that she had very poorly controlled anxiety and multiple panic attacks every day. The patient reports poor p.o. intake, but no weight loss. No fevers or chills, no night sweats where she soaks the sheets, no chest pain, no orthopnea or edema. She does report diarrhea and urge incontinence. In the ED, head CT was negative. EKG was stable from prior with nonspecific T-wave changes. Chest x- ray was normal. UA was negative. White blood cell count was elevated. Vital signs were stable. Lactic acid was elevated, ketones were elevated. The patient was given Ativan with 1 L of normal saline, aspirin 325 mg. The patient is feeling much better after fluids the following morning. An echo was done to evaluate for aortic stenosis and she had 3/6 systolic murmur and her BNP was also elevated. The patient's echo results returned after the patient's was discharged, and told to follow up with her PCP. The patient's dyspnea was thought to be most likely secondary to severe anxiety and panic attacks as it was intermittent, however it could also be 2/2 to pulmonary hypertension seen on her Echo, which can be worked up further outpatient. She was given a short course of clonazepam upon discharge for her panic attacks. The patient would benefit from long-term therapy on SSRI and SNRI even though she has had side effects in the past. She states she is willing to see a psychiatrist outpatient. A referral was sent on her behalf to an outpatient Psychiatrist via [facility]. The patient reported poor p.o. intake. Her labs appeared hemoconcentrated and improved much with fluids. The patient was encouraged to drink adequate fluids (64 oz) daily. Her HERIBERTO improved with fluids. The patient's TSH was slightly elevated at 4.97. Her dose of levothyroxine was increased from 88 to 100 mcg daily. She will need followup with her PCP and repeat TSH testing in 6 wks. DISCHARGE DISPOSITION: Stable. DISCHARGE INSTRUCTIONS: 1. Location: Home. 2. Diet: Heart healthy, consistent carbohydrate. 3. Activity: As tolerated. 4. Follow up with PCP, Dr. Olivier Villatoro within one week. Follow up for pulmonary hypertension, hypothyroid management, encourage PO fluid intake, and for anxiety. Job ID: [id number] MTDD
--- NOTE | 2018-11-10 14:06 | EKG ---
Test Reason : Blood Pressure : / mmHG Vent. Rate : 063 BPM Atrial Rate : 063 BPM P-R Int : 146 ms QRS Dur : 084 ms QT Int : 436 ms P-R-T Axes : 077 -03 101 degrees QTc Int : 446 ms Normal sinus rhythm Abnormal ECG Confirmed by MANINDER SERNA M.D. ([id number]), film editor supervisor JERED WALDEN ([id number] on 11/10/2018 2:04:57 PM Referred By: Confirmed By:MANINDER SERNA M.D.
== END 2018-11-07 16:26 | disposition home or self-care (01) ==
LOC: ERS 09:55 → T4-B 15:26
PROVIDERS: ADMIT Student in an Organized Health Care Education/Training Program; ATTEND Student in an Organized Health Care Education/Training Program
DX: R06.02 Shortness of breath (principal); E86.0 Dehydration; K52.9 Noninfective gastroenteritis and colitis, unspecified; K50.90 Crohn's disease, unspecified, without complications; I10 Essential (primary) hypertension; E11.9 Type 2 diabetes mellitus without complications; N17.9 Acute kidney failure, unspecified; D72.829 Elevated white blood cell count, unspecified; E87.5 Hyperkalemia; E03.9 Hypothyroidism, unspecified; E83.52 Hypercalcemia; F41.0 Panic disorder [episodic paroxysmal anxiety]; F41.9 Anxiety disorder, unspecified; E66.9 Obesity, unspecified; Z68.30 Body mass index [BMI] 30.0-30.9, adult; Z79.82 Long term (current) use of aspirin; Z79.899 Other long term (current) drug therapy
CPT/HCPCS: 51701; 70450; 71045; 80048; 80307; 81003; 82010; 82330; 82435; 82803; 82962 ×2; 83605; 83690; 83880; 84132; 84145; 84295; 84484 ×2; 85014; 85025; 87086; 93005; 93306; 96361 ×3; 96374; 99285; G0378 ×2; 36415; 36416; 80053; 84443; A4353; J1644; J2060

== ENCOUNTER 2020-09-21 07:25 | Emergency (ER) | payer MEDICARE, BC ==
[2020-09-21] MEDS ORDERED: Acetaminophen 500 MG TAB ONE (07:39)
[2020-09-21] MEDS ORDERED: Bupivacaine 0.5% 10 ML VIAL ONE (07:44)
[2020-09-21] MEDS ORDERED: Triamcinolone 40 MG/ML VIAL IM SCH (08:15)
--- NOTE | 2020-09-21 08:46 | RAD ---
LEFT HIP 2 VIEWS: HISTORY: Left hip pain that started last night. FINDINGS: There are moderate arthritic changes of the hip. There is some joint space narrowing. Osteophytic c hanges along the acetabulum. No acute bony findings. IMPRESSION: Arthritic changes of the hip. No acute process. POS: OFF
== END 2020-09-21 09:22 | disposition home or self-care (01) ==
LOC: ERS 07:25
DX: M16.12 Unilateral primary osteoarthritis, left hip (principal); I10 Essential (primary) hypertension; Z79.899 Other long term (current) drug therapy; Z79.82 Long term (current) use of aspirin; E78.5 Hyperlipidemia, unspecified; E78.00 Pure hypercholesterolemia, unspecified; E11.9 Type 2 diabetes mellitus without complications; E03.9 Hypothyroidism, unspecified
CPT/HCPCS: 96372; J3301; J3490

== ENCOUNTER 2021-04-08 21:36 | Observation (INO) | payer MEDICARE, BC ==
[~2021-04-08 21:36] MED LIST: Iopamidol-370 76% 500 ML 1 ML ONE
[2021-04-08 22:14] LABS: #Basophils 0.1 thou/uL (0.0-0.2); #Eosinphils 0.2 thou/uL (0.0-0.7); #Neutrophils 10.2 thou/uL (1.40-6.50); %Basophils 0.5 % (0.0-1.0); %Eosinophils 1.5 % (0.0-10.0); %Lymphocytes 14.5 % (21.0-51.0); %Monocytes 7.5 % (0.0-10.0); Hemoglobin 14.3 g/dL (12.0-16.0); Mean Corpuscular HGB CONC 33.7 g/dL (32.0-36.0); Mean Platelet Volume 7.2 fL (7.4-10.4); Platelet Count 246 thou/uL (130-400); RBC Distribution Width 12.7 % (11.5-14.5); White Blood Cell (WBC) Count 13.5 thou/uL (4.8-10.8)
[2021-04-08 22:51] LABS: ALT (SGPT) 9 U/L (8-55); AST (SGOT) 14 U/L (5-34); Albumin 3.9 g/dL (3.4-4.8); Alkaline Phosphatase 80 U/L (40-110); Anion Gap 18 mmol/L (10-20); BUN (Urea Nitrogen) 15 mg/dL (9.8-20.1); Bilirubin, Total 0.5 mg/dL (0.2-1.2); Calc. Creatinine Clearance 0 mL/min (70-130); Calcium 9.1 mg/dL (7.8-10.44); Carbon Dioxide 21 mmol/L (23-31); Chloride 103 mmol/L (98-107); Globulin 3.6 g/dL (2.4-3.5); Glucose 160 mg/dL (83-110); Lipase 40 U/L (8-78); Potassium 4.3 mmol/L (3.5-5.1); Protein, Total 7.5 g/dL (5.8-8.1); Sodium 138 mmol/L (136-145)
[2021-04-09 00:14] LABS: Bacteria/HPF 2+ HPF (None Seen); Bilirubin Negative (Negative); Blood, Urine Negative (Negative); Clarity Clear (Clear); Glucose, Urine (Dipstick) Normal (Negative); Ketone, Urine Negative (Negative); Leukocyte Negative Leu/uL (Negative); Nitrite Negative (Negative); Protein, Urine (Dipstick) 30 mg/dL (Neg-Trace); RBC/HPF 0-3 HPF (0-3); Specific Gravity, Urine 1.016 (1.002-1.036); Squamous Epithelial 0-3 HPF (0-3); Urobilinogen Normal mg/dL (Less than 2); pH, Urine 6.5 (5.0-9.0)
[2021-04-09] MEDS ORDERED: MEROPENEM 1 GM/50 ML 1 GM in Premix Bag 1 BAG IVPB SCH (00:30)
[2021-04-09] MEDS ORDERED: Acetaminophen 325 MG TAB PO PRN (02:31)
[2021-04-09] MEDS ORDERED: Levothyroxine Sodium 125 MCG TAB PO SCH (06:00)
[2021-04-09 06:10] LABS: #Basophils 0.1 thou/uL (0.0-0.2); #Eosinphils 0.2 thou/uL (0.0-0.7); #Monocytes 1.4 thou/uL (0.11-0.59); #Neutrophils 8.3 thou/uL (1.40-6.50); %Basophils 0.4 % (0.0-1.0); %Eosinophils 1.7 % (0.0-10.0); %Lymphocytes 22.8 % (21.0-51.0); %Monocytes 10.8 % (0.0-10.0); %Neutrophils 64.3 % (42.0-75.0); Hemoglobin 13.2 g/dL (12.0-16.0); Mean Corpuscular HGB CONC 33.3 g/dL (32.0-36.0); Mean Corpuscular Hemoglobin 30.5 pg (27.0-31.0); Mean Corpuscular Volume 91.6 fL (78.0-98.0); Mean Platelet Volume 7.1 fL (7.4-10.4); Platelet Count 239 thou/uL (130-400); RBC Distribution Width 12.7 % (11.5-14.5); Red Blood Cell (RBC) Count 4.31 mill/uL (4.20-5.40)
[2021-04-09 06:48] LABS: Anion Gap 12 mmol/L (10-20); BUN (Urea Nitrogen) 16 mg/dL (9.8-20.1); Calc. Creatinine Clearance 0 mL/min (70-130); Calcium 8.9 mg/dL (7.8-10.44); Carbon Dioxide 28 mmol/L (23-31); Chloride 101 mmol/L (98-107); Glucose 160 mg/dL (83-110); Potassium 4.4 mmol/L (3.5-5.1); Sodium 137 mmol/L (136-145)
[2021-04-09 07:43] VITALS: BMI 33.2
[2021-04-09 07:55] VITALS: BP 180/75; TEMP 98.2
[2021-04-09] MEDS ORDERED: Aspirin 81 mg Enteric Coated Tablet PO SCH (09:00)
[2021-04-09] MEDS ORDERED: Spironolactone 25 MG TAB PO SCH (09:00)
[2021-04-09] MEDS ORDERED: Alogliptin 25 MG TAB PO SCH (09:00)
[2021-04-09] MEDS ORDERED: Losartan 25 MG TAB PO SCH (09:00)
[2021-04-09] MEDS ORDERED: Liothyronine Sodium 5 MCG TAB PO SCH (09:00)
[2021-04-09] MEDS ORDERED: Escitalopram Oxalate 10 mg Tablet PO SCH (09:00)
[2021-04-09] MEDS ORDERED: Amlodipine 10 MG TAB PO SCH (09:00)
[2021-04-09] MEDS ORDERED: Clopidogrel Bisulfate 75 MG TAB PO SCH (09:00)
[2021-04-09] MEDS ORDERED: Cyclobenzaprine 10 MG TAB PO PRN (09:49)
[2021-04-09] MEDS: Enoxaparin Sodium 40 MG/0.4 ML SYRINGE SC SCH ×2 (10:52→11:00)
[2021-04-09] MEDS ORDERED: Methocarbamol 500 MG TAB PO PRN (11:30)
[2021-04-09] MEDS ORDERED: Diclofenac 1% 100 GM GEL TP SCH (13:00)
== END 2021-04-09 13:56 | disposition home or self-care (01) ==
LOC: ERS 21:36 → T4-A 04-09 00:50
PROVIDERS: ADMIT Family Medicine; ATTEND Family Medicine
DX: M25.551 Pain in right hip (principal); E03.9 Hypothyroidism, unspecified; I12.9 Hypertensive chronic kidney disease with stage 1 through stage 4 chronic kidney disease, or unspecified chronic kidney disease; E11.22 Type 2 diabetes mellitus with diabetic chronic kidney disease; N18.32 Chronic kidney disease, stage 3b; D72.829 Elevated white blood cell count, unspecified; R53.1 Weakness; R42 Dizziness and giddiness; R00.2 Palpitations; E78.5 Hyperlipidemia, unspecified; I25.10 Atherosclerotic heart disease of native coronary artery without angina pectoris; K50.90 Crohn's disease, unspecified, without complications; G70.00 Myasthenia gravis without (acute) exacerbation; M48.00 Spinal stenosis, site unspecified; M47.9 Spondylosis, unspecified; R91.1 Solitary pulmonary nodule; D17.79 Benign lipomatous neoplasm of other sites; K75.3 Granulomatous hepatitis, not elsewhere classified; Z85.3 Personal history of malignant neoplasm of breast; Z87.440 Personal history of urinary (tract) infections; Z87.891 Personal history of nicotine dependence; Z79.82 Long term (current) use of aspirin; Z79.84 Long term (current) use of oral hypoglycemic drugs; Z79.899 Other long term (current) drug therapy; Z88.0 Allergy status to penicillin; Z88.1 Allergy status to other antibiotic agents; Z88.5 Allergy status to narcotic agent; Z88.6 Allergy status to analgesic agent; Z88.8 Allergy status to other drugs, medicaments and biological substances; Z95.1 Presence of aortocoronary bypass graft; Z95.828 Presence of other vascular implants and grafts
CPT/HCPCS: 36415; 36416; 74177; 80048; 80053; 81003; 81015; 82550; 83690; 84145; 85025; 87077; 87086; 87186; 93005; 96365; G0378; J1650; J2185; Q9967

== ENCOUNTER 2021-04-17 08:58 | Emergency (ER) | payer MEDICARE, BC ==
[2021-04-17] MEDS ORDERED: Morphine 4 MG/ML VIAL ONE (09:55)
[2021-04-17] MEDS ORDERED: Ondansetron PF 4 MG/2 ML Vial ONE (09:56)
[2021-04-17 09:59] LABS: #Basophils 0.1 thou/uL (0.0-0.2); #Eosinphils 0.3 thou/uL (0.0-0.7); #Lymphocytes 2.7 thou/uL (1.20-3.40); #Monocytes 1.1 thou/uL (0.11-0.59); #Neutrophils 8.8 thou/uL (1.40-6.50); %Basophils 0.5 % (0.0-1.0); %Eosinophils 2.3 % (0.0-10.0); %Lymphocytes 20.8 % (21.0-51.0); %Monocytes 8.6 % (0.0-10.0); %Neutrophils 67.8 % (42.0-75.0); Hemoglobin 12.9 g/dL (12.0-16.0); Mean Corpuscular HGB CONC 34.7 g/dL (32.0-36.0); Mean Corpuscular Hemoglobin 31.7 pg (27.0-31.0); Mean Corpuscular Volume 91.3 fL (78.0-98.0); Mean Platelet Volume 7.9 fL (7.4-10.4); Platelet Count 273 thou/uL (130-400); RBC Distribution Width 12.7 % (11.5-14.5); Red Blood Cell (RBC) Count 4.08 mill/uL (4.20-5.40); White Blood Cell (WBC) Count 12.9 thou/uL (4.8-10.8)
[2021-04-17 10:22] LABS: ALT (SGPT) 9 U/L (8-55); AST (SGOT) 15 U/L (5-34); Albumin 3.7 g/dL (3.4-4.8); Alkaline Phosphatase 79 U/L (40-110); Anion Gap 15 mmol/L (10-20); BUN (Urea Nitrogen) 24 mg/dL (9.8-20.1); Bilirubin, Total 0.4 mg/dL (0.2-1.2); Calc. Creatinine Clearance 0 mL/min (70-130); Calcium 9.4 mg/dL (7.8-10.44); Carbon Dioxide 23 mmol/L (23-31); Chloride 106 mmol/L (98-107); Globulin 3.7 g/dL (2.4-3.5); Glucose 217 mg/dL (83-110); Protein, Total 7.4 g/dL (5.8-8.1); Sodium 140 mmol/L (136-145)
== END 2021-04-17 13:02 | disposition home or self-care (01) ==
LOC: ERS 08:58
DX: S62.610A Displaced fracture of proximal phalanx of right index finger, initial encounter for closed fracture (principal); S73.101A Unspecified sprain of right hip, initial encounter; S43.401A Unspecified sprain of right shoulder joint, initial encounter; E78.5 Hyperlipidemia, unspecified; E78.00 Pure hypercholesterolemia, unspecified; E11.9 Type 2 diabetes mellitus without complications; E03.9 Hypothyroidism, unspecified; K50.90 Crohn's disease, unspecified, without complications; G70.00 Myasthenia gravis without (acute) exacerbation; Z85.3 Personal history of malignant neoplasm of breast; Z79.82 Long term (current) use of aspirin; Z79.899 Other long term (current) drug therapy; W18.30XA Fall on same level, unspecified, initial encounter
CPT/HCPCS: 71045; 80053; 85025; 96374; 96375; J2270; J2405